=== PATIENT | female | born 1960 | race Caucasian/White ===

== ENCOUNTER 2024-01-24 09:57 | Emergency (ER) | payer OTHER, SELFPAY ==
--- NOTE | 2024-01-24 10:00 | ED.GENMED ---
ED Provider Triage
<Merlyn Humphreys PA-C - Last Filed: 01/24/24 10:05>
-
Patient seen by provider in Triage?: Seen in Triage
Attestation: A medical screening examination has been initiated by a qualified medical provider. Based on the assessment performed at this time, it has been determined that an emergent medical condition may exist and the patient has been informed
that further medical evaluation and possible additional diagnostic testing may be needed.
HPI: 63yoF here with L elbow pain and redness x 1 week. Started after receiving a flu shot. Currently on day 5 of doxycycline for cellulitis. No fevers. Sent to ED by PCP due to persistent symptoms.
GENERAL: Alert , in no apparent distress
EYE: No visual abnormalities.
NECK: Trachea midline
ENT: No visible abnormalities.
LUNGS: No acute respiratory distress
NEUROLOGICAL: Alert and oriented
SKIN: Skin intact. No visible changes.
MUSCULOSKELETAL: Moving extremities normally
PSYCH: Normal and appropriate interaction.
This is a medical evaluation conducted in person to initiate diagnostic evaluation and provide initial therapeutics. Please see further documentation by the treating clinician.
CBC, CMP, and L elbow x-rays ordered ordered.
History of Present Illness
<Merlyn Humphreys PA-C - Last Filed: 01/24/24 10:05>
General
Chief Complaint: Skin Problem
Time Seen by Provider: 01/24/24 11:20
<Jennifer Lind PA-C - Last Filed: 01/24/24 15:00>
General
Source: patient
Exam Limitations: none
Nursing documentation reviewed up to this point in time: agreed with
History of Present Illness
History of Present Illness:
Patient is a 63 y.o female presenting to the emergency department for evaluation of persistent redness of left elbow currently being treated for cellulitis. Patient states last , 5 days ago, she noticed some pain and swelling around her
left elbow. She also noticed some associated redness. She was seen by her primary care the following day where she was prescribed a course of doxycycline for suspected cellulitis. Patient states she believes symptoms are improving although she
has had mild spreading of the redness into her forearm. Patient's family became concerned and urged her to come to the emergency department for evaluation. Patient denies any systemic signs of action including fever, chills, nausea/vomiting,
weakness, fatigue. Patient has no pain with range of motion in left elbow. However�she does have mild pain to palpation around left elbow and left forearm. Patient tolerating doxycycline well.
Of note�patient does state that she was the skin of her left elbow the day prior to onset of symptoms. Patient did receive her flu vaccine the day that appeared.
Review of Systems
<Jennifer Lind PA-C - Last Filed: 01/24/24 15:00>
Review of Systems
Allergies reviewed?: Yes
All Other Systems: ROS reviewed and negative except as documented in HPI and ROS
Phy Exam
<Jennifer Lind PA-C - Last Filed: 01/24/24 15:00>
Physical Exam
Physical Exam:
Vitals: Patient's vital signs are stable. Afebrile
General: Patient is very well appearing, no acute distress
Skin: Mild erythema of left elbow and left proximal forearm with mild warmth. No crepitus. No red streaking.
Head: Normocephalic, atraumatic
Throat: Protecting airway
Neck: Normal ROM, no cervical spine tenderness
Cardiac: Regular rate and rhythm.
Pulm: No apparent respiratory distress. Lungs clear bilaterally
Abdomen: Nondistended
Extremities: Mild erythema of left elbow and proximal forearm as described above. No joint effusion of left elbow. No significant swelling overlying left olecranon process. Excellent active and passive range of motion of left elbow without pain.
No erythema, edema, or pain of left wrist or left shoulder. Left upper extremity neurovascularly intact.
Neuro: Grossly intact
Psychiatric: Normal affect.
Course
<Merlyn Humphreys PA-C - Last Filed: 01/24/24 10:05>
Orders/Labs/Results
Orders:
Orders
01/24/24 10:05
CR Elbow - Left Min 3 Views Urgent
Comment:
Reason For Exam: swelling
01/24/24 11:36
Complete Blood Count/With Diff Urgent
Comprehensive Metabolic Panel Urgent
Abnormal Lab Results
01/24/24
11:36
Hct 34.1 L %
(37.0-47.0)
MCV 80.2 L fL
(81.0-99.0)
BUN 20 H mg/dl
(7-17)
01/24/24 11:36
01/24/24 11:36
Vital Signs
Initial and Last Documented VS:
Initial Vital Signs
Pulse Resp BP Pulse Ox
79 18 168/89 99
01/24/24 10:01 01/24/24 10:01 01/24/24 10:01 01/24/24 10:01
Last Documented Vital Signs
Temp Pulse Resp BP Pulse Ox
98.4 F 67 18 130/76 98
01/24/24 11:45 01/24/24 13:10 01/24/24 13:10 01/24/24 13:10 01/24/24 13:10
<Jennifer Lind PA-C - Last Filed: 01/24/24 15:00>
Orders/Labs/Results
Orders:
Orders
01/24/24 10:05
CR Elbow - Left Min 3 Views Urgent
Comment:
Reason For Exam: swelling
01/24/24 11:36
Complete Blood Count/With Diff Urgent
Comprehensive Metabolic Panel Urgent
Abnormal Lab Results
01/24/24
11:36
Hct 34.1 L %
(37.0-47.0)
MCV 80.2 L fL
(81.0-99.0)
BUN 20 H mg/dl
(717)
01/24/24 11:36
01/24/24 11:36
Vital Signs
Initial and Last Documented VS:
Initial Vital Signs
Pulse Resp BP Pulse Ox
79 18 168/89 99
01/24/24 10:01 01/24/24 10:01 01/24/24 10:01 01/24/24 10:01
Last Documented Vital Signs
Temp Pulse Resp BP Pulse Ox
98.4 F 67 18 130/76 98
01/24/24 11:45 01/24/24 13:10 01/24/24 13:10 01/24/24 13:10 01/24/24 13:10
<Jacques Bobby MD - Last Filed: 01/24/24 13:01>
Orders/Labs/Results
Orders:
Orders
01/24/24 10:05
CR Elbow - Left Min 3 Views Urgent
Comment:
Reason For Exam: swelling
01/24/24 11:36
Complete Blood Count/With Diff Urgent
Comprehensive Metabolic Panel Urgent
Abnormal Lab Results
01/24/24
11:36
Hct 34.1 L %
(37.0-47.0)
MCV 80.2 L fL
(81.0-99.0)
BUN 20 H mg/dl
(717)
01/24/24 11:36
01/24/24 11:36
Vital Signs
Initial and Last Documented VS:
Initial Vital Signs
Pulse Resp BP Pulse Ox
79 18 168/89 99
01/24/24 10:01 01/24/24 10:01 01/24/24 10:01 01/24/24 10:01
Last Documented Vital Signs
Temp Pulse Resp BP Pulse Ox
98.4 F 67 18 130/76 98
01/24/24 11:45 01/24/24 13:10 01/24/24 13:10 01/24/24 13:10 01/24/24 13:10
<Jennifer Lind PA-C - Last Filed: 01/24/24 15:00>
MDM/Problems Addressed
Differential Diagnosis Includes:
Not limited to: Cellulitis, osteoarthritis, medial epicondylitis, do not suspect septic arthritis
MDM/Problems Addressed:
63-year-old female with cellulitis of left elbow, clinically improving. Patient on day 4 of doxycycline. Still with mild erythema around left elbow extending down to left arm. No systemic signs of infection including fever, chills, fatigue.
Vital signs are stable, patient is afebrile. Patient is not tachycardic. Patient is normotensive. Physical exam as above. Patient has excellent range of motion in left elbow without pain�do not suspect septic arthritis. X-ray of left elbow and
labs were initiated in triage. Labs without any clinically significant abnormalities. There is no leukocytosis. Left x-ray of elbow shows no evidence of fracture dislocation. No joint effusion. Some mild subcutaneous edema consistent with
cellulitis. Did compare clinical appearance with photo from last Tuesday. Clinically�erythema and edema appear much improved. Patient is not immunocompromise. Given patient is afebrile without systemic signs of infection and clinically improving
cellulitis�feel she is stable for discharge with primary care follow-up. Advised to complete course of doxycycline as prescribed. Return precautions discussed. Patient will follow-up with primary care for repeat evaluation in a few days. Patient
seen with attending physician.
Chronic conditions affecting care:
N/A
Acute Exacerbation and/or Progression of Chronic Illness:
N/A
<Jennifer Lind PA-C - Last Filed: 01/24/24 15:00>
*Radiology
Radiology exam reviewed: radiology read reviewed
*Pulse Oximetry
Patient hypoxic: no
*EKG
Interpreted by ED Provider?: NA
*Housing Assistant Interpretation
Rate: Housing Assistant- N/A
*Critical Care Note
Total Time (30-74mins, 75-104mins- exclusive of procedures): Not Applicable
ED Attending Note
<Merlyn Humphreys PA-C - Last Filed: 01/24/24 10:05>
-
Portions of this chart may have been created with voice recognition software.� Occasional wrong word or��sound alike� substitutions may have occurred due to the inherent limitations of voice recognition software.
<Jacques Bobby MD - Last Filed: 01/24/24 13:01>
ED Attending Note
Patient seen and examined by attending physician: Yes
ED Attending Note:
Patient presents to ED for evaluation secondary to continual left elbow redness with swelling over the past 5 days. Patient was seen by her primary care physician and was started on doxycycline 4 days ago, with mild improvement symptoms. Denies
fever or chills. Denies nausea or vomiting. Denies pain. Denies difficulty with ranging the affected elbow. Patient states that she has scab over her left elbow, which she may have picked on 2 days prior to onset of her symptoms. Denies
previous history of skin infection.
Physical Exam
General: no apparent distress, not acutely ill. afebrile
Head: nc/at. eomi
Neck: supple. normal range of motion
Neuro: alert and oriented. no focal neurological deficits
Skin: left olecranon - dry scab noted with minimal surrounding erythema. normal range of motion. no warmth. nontender to palpation.
Psychiatric: well kept. interactive and cooperative
Extremities: no edema. no calf tenderness.
Fortunately, patient was able to provide photographs of her elbow when it first began 5 days ago. Comparatively, patient with much improvement clinically, along without any symptoms concerning for any systemic infection at this time. As such, it
is reasonable to continue doxycycline and follow-up with PCP later this week for reevaluation. Return precautions, including fever/worsening redness/vomiting, provided to patient and her spouse at time of discharge.
Discharge Plan
Departure
Patient Disposition: Home (Routine Discharge)
Date of Disposition: 01/24/24
Time of Disposition: 12:47
Patient with high blood pressure during this ER visit?: Yes
Condition: Good
Covid-19: Not Applicable
Discharge Problem:
Cellulitis of left elbow
Instructions: Cellulitis (Skin Infection), Adult (DC), BLOOD PRESSURE
Referrals:
Larry Garcia, [Family Provider] - Follow up in 5-7 days
Stand Alone Forms: Return to Work
Activity Restrictions/Additional Instructions:
RETURN TO THE EMERGENCY DEPARTMENT WITH FEVERS, PERSISTENT/WORSENING PAIN, SWELLING, OR REDNESS OF LEFT ARM/FOREARM, RED STREAKING, NUMBNESS/TINGLING IN LEFT ARM, WORSENING IN CURRENT SYMPTOMS, OR ANY OTHER CONCERNS
-As discussed�you should continue to take the doxycycline as prescribed by your primary care and complete course. You can ice/elevate left arm. You can take Motrin/Tylenol as needed for discomfort.
-Follow-up with your primary care provider a few days to ensure continued improvement in cellulitis.
Monitor your symptoms closely and return to the emergency department any acute worsening/new symptoms
Interventions
Interventions:
*Risk Screen - Suicide Last Done: 01/24/24 10:06
*General Assessment Last Done: 01/24/24 10:06
*Neglect/Abuse Screening Last Done: 01/24/24 10:06
*Nursing Disposition Last Done: 01/24/24 13:12
ED-Skin Assessment Last Done: 01/24/24 13:13
Discharge Date and Time
Discharge Date/Time: 01/24/24 13:13
Print Language: ITALIAN
[2024-01-24 10:01] VITALS: BP 168/89
[2024-01-24 11:45] VITALS: BP 139/72
[2024-01-24 11:57] LABS: % Basophils 0.3 % (0-2); % Eosinophils 2.5 % (0-6); % Immature Granulocytes 0.3 % (0-0.5); % Lymphocytes 36.1 % (20.5-51.1); % Monocytes 6.4 % (1.7-9.3); % Neutrophils 54.4 % (42.2-75.2); Absolute Eosinophils 0.2 10^3/uL (0-0.7); Absolute Lymphocytes 2.2 10^3/uL (1.2-3.4); Absolute Monocytes 0.4 10^3/uL (0.1-0.6); Absolute Neutrophils 3.2 10^3/uL (1.4-6.5); Hematocrit 34.1 % (37.0-47.0); Mean Corp Hgb Conc. 35.2 g/dL (33.0-37.0); Mean Corpuscular Hgb 28.2 pg (27.0-31.0); Mean Corpuscular Volume 80.2 fL (81.0-99.0); Mean Platelet Volume 8.6 fL (7.4-10.4); Nucleated Red Blood Cells % 0 %; Platelet Count 212 10^3/uL (130-400); Red Blood Cell Count 4.25 10^6/uL (4.20-5.40); Red Cell Dist. Width 13.7 % (11.5-14.5)
[2024-01-24 12:10] LABS: ALT (SGPT) 20 U/L (0-35); AST (SGOT) 22 U/L (14-36); Albumin 4.7 g/dl (3.5-5.0); Alkaline Phosphatase 61 U/L (38-126); Blood Urea Nitrogen 20 mg/dl (7-17); Calcium 10.1 mg/dl (8.4-10.2); Carbon Dioxide 25 mmol/L (22-30); Chloride 107 mmol/L (98-107); Glucose 97 mg/dl (70-99); Potassium 4.5 mmol/L (3.5-5.1); Sodium 144 mmol/L (135-145); Total Bilirubin 0.2 mg/dl (0.2-1.3); Total Protein 7.2 g/dl (6.3-8.2); eGFR > 60.00
[2024-01-24 13:10] VITALS: BP 130/76
== END 2024-01-24 13:13 | disposition home or self-care (01) ==
LOC: EMR 09:57
PROVIDERS: Physician Assistant; EMERGENCY PHYSICIAN Emergency Medicine; FAMILY PHYSICIAN Family Medicine Adult Medicine
DX: L03.114 Cellulitis of left upper limb (principal)
CPT/HCPCS: 99283; 73080; 80053; 85025